=== PATIENT | male | born 1935 | race Caucasian/White ===

== ENCOUNTER 2016-07-02 09:08 | Observation (INO) | payer MEDICARE ==
[~2016-07-02] VITALS: Ht 172.7 cm; Wt 74.4 kg
[2016-07-02] VITALS (10 sets, daily range): BP systolic 118–140; BP diastolic 58–68
[~2016-07-02 09:08] MED LIST: BUPIVACAINE-EPI 0.25%-1:200000 MPF 30 ML VIAL. ONE; HYDROmorphone 2 MG/ML VIAL IV PRN; IV RINGERS,LACTATED 1000ML 1,000 ML IV SCH; LIDOCAINE 1% 1 ML SYRINGE. ID PRN; MORPHINE SULFATE 2 MG/ML DISP.SYRIN. IV PRN; ONDANSETRON PF 4 MG/2 ML VIAL. IV PRN; PROCHLORPERAZINE 10 MG/2 ML VIAL. IV PRN; fentaNYL PF VIAL 100 MCG/2 ML VIAL IV PRN
[2016-07-02] MEDS ORDERED: DOXA4TAB3 PO (09:19)
[2016-07-02] MEDS ORDERED: LISI10TA2 PO (09:19)
[2016-07-02] MEDS ORDERED: LIDOCAINE 2% PF Vial for OR 5 ML VIAL. ONE (09:24)
[2016-07-02] MEDS ORDERED: ONDANSETRON PF 4 MG/2 ML VIAL. ONE (09:24)
[2016-07-02] MEDS ORDERED: PROPOFOL 20 ML IV ONE (09:24)
[2016-07-02] MEDS ORDERED: DEXAMETHASONE SOD PHOS 20 MG/5 ML VIAL. ONE (09:24)
[2016-07-02] MEDS ORDERED: ROCURONIUM 50 MG/5 ML VIAL. ONE (09:25)
[2016-07-02] MEDS ORDERED: fentaNYL PF VIAL 100 MCG/2 ML VIAL ONE ×2 (09:26→11:15)
[2016-07-02] MEDS ORDERED: NEOSTIGMINE METHYLSULFATE 5 MG/5 ML SYRINGE. ONE (10:52)
[2016-07-02] MEDS ORDERED: GLYCOPYRROLATE 1 MG/5 ML VIAL. ONE (10:53)
[2016-07-02] MEDS ORDERED: ePHEDrine PF IN SALINE 50 MG/5 ML DISP.SYRIN IV ONE (11:09)
[2016-07-02] MEDS ORDERED: DESFLURANE 61 TO 120 MINUTES IH ONE (11:34)
[2016-07-02] MEDS ORDERED: DESFLURANE 31 TO 60 MINUTES IH ONE (11:44)
--- NOTE | 2016-07-02 11:51 | PDOC ---
BRIEF OPERATIVE NOTE Date: July 02, 2016 Pre-Op Diagnosis Recurrent LIH Post-Op Diagnosis Same Procedure Performed Robotic assisted LIH repair with mesh Surgeon Adriano Anesthesia Type: General Blood Loss 10ml Specimens Obtained None Findings As above Complications None JORGE MCDERMOTT MD July 02, 2016 11:51
[2016-07-02] MEDS: IV DEXTROSE 5%-LACT RINGERS 1,000 ML IV SCH (11:54)
[2016-07-02] MEDS ORDERED: 0.9 % SODIUM CHLORIDE 10 ML DISP.SYRIN. IV PRN (12:00)
[2016-07-02] MEDS ORDERED: MORPHINE SULFATE 2 MG/ML DISP.SYRIN. IV PRN (12:00)
[2016-07-02] MEDS ORDERED: oxyCODONE/APAP 5/325 1 TAB TABLET PO PRN ×2 (12:00)
[2016-07-02] MEDS ORDERED: ONDANSETRON PF 4 MG/2 ML VIAL. IV PRN (12:00)
[2016-07-02] MEDS: KETOROLAC 15 MG/ML VIAL. IV SCH ×2 (12:00→18:00)
[2016-07-02] MEDS: fentaNYL PF VIAL 100 MCG/2 ML VIAL IV PRN ×4 (12:11→12:42)
--- NOTE | 2016-07-02 17:15 | OP ---
DATE OF SURGERY: 07/02/2016 PREOPERATIVE DIAGNOSIS: Recurrent left inguinal hernia. POSTOPERATIVE DIAGNOSIS: Recurrent left inguinal hernia. PROCEDURE: Robotic-assisted laparoscopic left inguinal hernia repair with mesh. SURGEON: Armin Mcdermott M.D. INDICATIONS: The patient is an 80-year-old gentleman who has had bilateral inguinal hernia repairs done in the past as well as umbilical hernia repair who comes in with complaints of a bulge in his left groin. It is becoming more painful. Procedure of robotic-assisted laparoscopic left inguinal hernia repair with mesh was explained to the patient in detail. Risks and benefits were also discussed including bleeding, infection, injury to intra-abdominal contents, and possibly sustaining further open operations. Alternatives of this procedure were also discussed with the patient who seemed to understand and gave verbal and written consent to have the procedure performed. DESCRIPTION OF PROCEDURE: The patient was taken to the Operating Room and placed in the supine position. General anesthesia was initiated. Once the patient was asleep and intubated, he was placed in a low lithotomy positioning. His abdomen was prepped and draped in usual sterile fashion using ChloraPrep. An area in the left upper quadrant was injected with 0.25% Marcaine with epinephrine. Incision was made with an 11-blade scalpel, and a 5-mm operative port was placed under direct visualization into the abdomen. Pneumoperitoneum was achieved and was complete. A 5-mm camera was placed, and the abdomen was inspected. Concern was for adhesions around the previous umbilical hernia site. There were none there. There was a hernia in the left inguinal canal. At this point, area just above the umbilicus was injected with 0.25% Marcaine with epinephrine. An incision was made with an 11-blade scalpel, and an 8.5-mm da Hilario port was placed under direct visualization. Two more da Hilario ports were placed, one in the right mid abdomen and one in the left mid abdomen. At this point, the da Hilario robot was brought in between the patient's legs and docked to all ports. A 30-degree up camera was placed and a grasper placed in the right port and EndoShears in the left port. At this point, the surgeon went to the surgical console. Using a grasper and EndoShears scissors, the peritoneum over the left inguinal canal over the hernia defect was incised. A window was propagated at the peritoneum inferiorly. The incarcerated contents of the inguinal canal and the hernia sac were dissected free and reduced. At this point, a ProGrip mesh was then placed over the defect and over the floor of the peritoneum. Once this was in place, the peritoneal covering tissue was closed over the mesh with a running V-Loc suture. At this point, the da Hilario robot was undocked. All ports were removed. The skin incisions were closed with 4-0 subcuticular Monocryl. Mastisol, Steri-Strips, and Band-Aids were applied as dressings. The patient was awakened, extubated in the Operating Room, taken to Recovery in stable condition. All sponge, instrument counts were listed as correct. Estimated blood loss was 10 mL. ARMIN MCDERMOTT MD DR: IMER/vlad JOB#: [id number] / [id number] Dr. Noe Reardon
[2016-07-02] MEDS ORDERED: MAG HYDROX/ALUMINUM HYD/SIMETH 30 ML ORAL.SUSP PO PRN (22:00)
[2016-07-03] MEDS: IV DEXTROSE 5%-LACT RINGERS 1,000 ML IV SCH (01:14)
[2016-07-03 03:00] VITALS: BP 139/67
[2016-07-03] MEDS: KETOROLAC 15 MG/ML VIAL. IV SCH ×2 (05:53)
[2016-07-03 07:00] VITALS: BP 119/67
--- NOTE | 2016-07-03 08:10 | DISCH ---
DISCHARGE INSTRUCTIONS Condition on Discharge Condition on Discharge: Stable Activity After Discharge Activity Instructions for Disc: Avoid exertion Other activity instructions: No lifting >20lbs for 2 weeks Diet after Discharge Diet after Discharge: Regular Wound Incision Care Other wound/incision instructi: Judy keys starting today Contacting the after DC Call your doctor for: If your condition worsens Follow-Up Follow up with: Dr Mcdermott in 2 weeks JORGE MCDERMOTT MD July 03, 2016 08:10
--- NOTE | 2016-07-03 08:13 | PDOC3 ---
Discharge Summary* Date of Admission: July 02, 2016 Date of Discharge: July 03, 2016 Admitting Diagnosis Recurrent LIH Final Diagnosis Same CONSULTS None Procedures Robotic L/S LIH repair Brief Hospital Course Mr. Chapa is a 80 old male underwent LIH repair and is doing very well. Tolerating diet and up and walking. CONDITION AT DISCHARGE: Stable Diet: Regular Scheduled Doxazosin Mesylate (Doxazosin Mesylate), 1 TAB PO DAILY, (Reported) Lisinopril (Lisinopril), 10 MG PO DAILY, (Reported) FOLLOW UP APPOINTMENT: Dr Mcdermott in 2 weeks Time Spent Total time spent with patient [] minutes for coordination of care, counseling, and education. JORGE MCDERMOTT MD July 03, 2016 08:13
== END 2016-07-03 10:45 | disposition home or self-care (01) ==
LOC: SURG 09:08 → 4 NORTH 12:04
PROVIDERS: ADMIT Surgery; ATTEND Surgery
DX: K40.91 Unilateral inguinal hernia, without obstruction or gangrene, recurrent (principal)
CPT/HCPCS: 49651; C1781; G0378; G0379; J1100; J2405; J2704; J2710; J3010; J3490; S2900

== ENCOUNTER 2017-11-19 20:43 | Emergency (ER) | payer MEDICARE ==
[~2017-11-19] VITALS: Ht 172.7 cm; Wt 74.8 kg
[~2017-11-19 20:43] MED LIST changes: -BUPIVACAINE-EPI 0.25%-1:200000 MPF 30 ML VIAL. ONE; +DOXA4TAB3 PO; -HYDROmorphone 2 MG/ML VIAL IV PRN; -IV RINGERS,LACTATED 1000ML 1,000 ML IV SCH; -LIDOCAINE 1% 1 ML SYRINGE. ID PRN; +LISI10TA2 PO; -MORPHINE SULFATE 2 MG/ML DISP.SYRIN. IV PRN; -ONDANSETRON PF 4 MG/2 ML VIAL. IV PRN; -PROCHLORPERAZINE 10 MG/2 ML VIAL. IV PRN; -fentaNYL PF VIAL 100 MCG/2 ML VIAL IV PRN
[2017-11-19 22:34] VITALS: BP 136/60
--- NOTE | 2017-11-19 22:44 | RAD ---
Right rib series to include a PA chest radiograph 11/19/2017 CLINICAL HISTORY: Right-sided rib pain post fall. A PA digital radiograph of the chest was obtained. Two AP and an oblique digital radiographs of the right ribs were obtained. Comparison study is dated 05/08/2011. Horacio cardiac silhouette is borderline enlarged. There is left ventricular prominence. The thoracic aorta is tortuous. Atherosclerotic calcification of the thoracic aorta is seen. No acute pulmonary infiltrate is noted. No pneumothorax or pleural effusion is seen. There is diffuse osteopenia of the visualized bony structures. Degenerative changes are seen involving the thoracic spine. Degenerative changes are seen involving the right shoulder. Acute fractures of the anterolateral lateral aspect of the right ninth and 10th ribs are seen. These are not significantly displaced. IMPRESSION: Acute essentially nondisplaced fractures of the right ninth and 10th ribs. No pneumothorax is seen. Electronically signed by: Eric Flower MD (11/19/2017 10:40 PM) [facility]
[2017-11-19] MEDS ORDERED: HYDR-971 PO (23:32)
--- NOTE | 2017-11-19 23:32 | PHYS DOC ---
Past Medical History Past Medical History: High Cholesterol, Hypertension Past Surgical History: Cholecystectomy, Other Additional Past Surgical Histo: umbilical hernia repair,inguinal Alcohol Use: Rarely Drug Use: None Adult General Chief Complaint Chief Complaint: MECHANICAL FALL HPI HPI Patient is a 81 year old male resents with accidental fall after missing parts step while walking down outdoor stairs. Patient fell hitting her right posterior lower ribs off the staircase. He did hit his head off of the grafts. Denies loss of consciousness, headache, neck pain. Patient is not on anticoagulation or antiplatelet therapy. Reports right posterior chest wall pain with deep breathing. Denies anterior, chest pain,, extremity pain or any other pain complaint. He is ambulatory with a steady gait. Denies any medical symptoms preceding the fall. Denies chest pain palpitations shortness of breath , no focal extremity weakness or loss of sensation, dizziness or other strokelike symptoms. Return precautions reviewed.[] Review of Systems Review of Systems ROS as per HPI] All other systems were reviewed and found to be within normal limits, except as documented in this note. Allergies Allergies Allergies Coded Allergies Type Severity Reaction Last Updated Verified No Known Drug Allergies 07/02/16 No Physical Exam Physical Exam Constitutional: Well developed, well nourished, no acute distress, non-toxic appearance. [] HENT: Normocephalic, atraumatic, bilateral external ears normal, oropharynx moist, no oral exudates, nose normal. [] Eyes: PERRLA, EOMI, conjunctiva normal, no discharge. [] Neck: Normal range of motion, no tenderness, supple, no stridor. [] Cardiovascular:Heart rate regular rhythm, no murmur [] Lungs & Thorax: Bilateral breath sounds clear to auscultation [] Abdomen: Bowel sounds normal, soft, no tenderness, no masses, no pulsatile masses. [] Skin: Warm, dry, no erythema, no rash. [] Back: Right lower posterior thoracic chest wall pain/ttp, no midline pain tenderness. No CVA tenderness. No bruising, bony crepitus.. [] Extremities: No tenderness, no cyanosis, no clubbing, ROM intact, no edema. [] Neurologic: Alert and oriented X 3, normal motor function, normal sensory function, no focal deficits noted. [] Psychologic: Affect normal, judgement normal, mood normal. [] Current Patient Data Vital Signs Vital Signs Date Time Temp Pulse Resp B/P (MAP) Pulse Ox O2 Delivery O2 Flow Rate FiO2 11/19/17 22:34 57 16 97 11/19/17 21:15 98.0 143/67 (92) Room Air 98.0 EKG EKG [] Radiology/Procedures Radiology/Procedures [Right rib series/chest x-ray: Nondisplaced posterior ninth and 10th rib fractures. ] Course & Med Decision Making Course & Med Decision Making Pertinent Labs and Imaging studies reviewed. (See chart for details) [Nondisplaced posterior right rib fractures. No shortness of breath. Patient offered CT head but declined. Recommend supportive care. Typical closed head injury and instructions and return precautions reviewed.] Dragon Disclaimer Dragon Disclaimer This electronic medical record was generated, in whole or in part, using a voice recognition dictation system. Departure Departure Impression: Primary Impression: Head injury Additional Impression: Closed rib fracture Disposition: HOME, SELF-CARE Condition: STABLE Referrals: ZOHAIB KU MD (PCP) Patient Instructions: Head Injury, Adult, [id number], Rib Fracture, Easy-to- Read Additional Instructions: Please home and rest. Take ibuprofen for pain and hydrocodone as needed for additional relief. Practices taking deep breaths ICU at increased risk of pneumonia. Follow-up with your PCP in the next 2-3 days for reevaluation. Return to the ED if you develop new or concerning symptoms. Specifically, if you develop increasing headache, confusion, vomiting, or any other concerning symptoms return to the emergency department. Scripts Hydrocodone/Apap 5-325 (NORCO 5-325 TABLET) 1 Each Tablet 1 TAB PO TID, #10 TAB Prov: HENRY AMOR DO 11/19/17 Problem Qualifiers HENRY AMOR DO Nov 19, 2017 23:33
== END 2017-11-19 23:39 | disposition home or self-care (01) ==
LOC: ER 20:43
DX: S22.31XA Fracture of one rib, right side, initial encounter for closed fracture (principal); S09.90XA Unspecified injury of head, initial encounter; E78.00 Pure hypercholesterolemia, unspecified; I10 Essential (primary) hypertension; W18.09XA Striking against other object with subsequent fall, initial encounter; Y93.89 Activity, other specified; Y92.89 Other specified places as the place of occurrence of the external cause; Y99.8 Other external cause status
CPT/HCPCS: 71101; 99284

== ENCOUNTER 2018-10-06 16:36 | Observation (INO) | payer MEDICARE ==
[~2018-10-06] VITALS: Ht 172.7 cm; Wt 72.3 kg
[~2018-10-06 16:36] MED LIST changes: +HYDR-3164 PO
[2018-10-06] MEDS ORDERED: IV NORMAL SALINE 1000ML BAG 1,000 ML IV ONE (17:15)
[2018-10-06 17:34] LABS: BASO % 1 % (0-3); EOS # 0.1 x10^3/uL (0.0-0.7); EOS % 2 % (0-3); HEMATOCRIT 33.1 % (39.0-53.0); HEMOGLOBIN 11.7 g/dL (13.0-17.5); LYMPH # 0.8 x10^3/uL (1.0-4.8); LYMPH % 21 % (24-48); MEAN CORPUSCULAR HEMOGLOBIN 35 pg (25-35); MEAN CORPUSCULAR HGB CONC 35 g/dL (31-37); MEAN CORPUSCULAR VOLUME 97 fL (79-100); MONO # 0.3 x10^3/uL (0.0-1.1); MONO % 8 % (0-9); NEUT # 2.7 x10^3/uL (1.8-7.7); NEUT % 68 % (31-73); PLATELET COUNT 113 x10^3/uL (140-400); RED BLOOD COUNT 3.39 x10^6/uL (4.30-5.70); WHITE BLOOD COUNT 3.9 x10^3/uL (4.0-11.0)
[2018-10-06 17:39] LABS: BILIRUBIN,URINE NEGATIVE (NEG); CLARITY,URINE CLOUDY; COLOR,URINE YELLOW; NITRITE,URINE NEGATIVE (NEG); PROTEIN,URINE NEGATIVE (NEG-TRACE); UROBILINOGEN,URINE 0.2 mg/dL (0.2 mg/dL)
--- NOTE | 2018-10-06 17:39 | RAD ---
AP portable chest radiograph 10/06/2018 Clinical History: Lightheadedness. An AP erect portable digital radiograph of the chest was obtained. Comparison study is dated 11/19/2017. The cardiac silhouette is mildly enlarged. The thoracic aorta is tortuous. Atherosclerotic calcification of the thoracic aorta is seen. Emphysematous changes are seen involving both lungs. No acute pulmonary infiltrate is seen. No pleural effusion or pneumothorax is noted. There is diffuse osteopenia the visualized bony structures. Degenerative changes are seen involving the thoracic spine and both shoulders. Impression: No acute abnormality is seen. Electronically signed by: Eric Flower MD (10/06/2018 5:36 PM) [facility]
[2018-10-06 17:43] LABS: PROTHROMBIN TIME PATIENT 13.8 SEC (11.7-14.0)
[2018-10-06 17:45] LABS: BACTERIA,URINE 0 /HPF (0-FEW); RBC,URINE >40 /HPF (0-2)
[2018-10-06 17:51] LABS: CALCIUM 8.8 mg/dL (8.5-10.1); GFR 71.2; POTASSIUM 3.7 mmol/L (3.5-5.1)
[2018-10-06 17:56] LABS: ALBUMIN 3.5 g/dL (3.4-5.0); ALBUMIN/GLOBULIN RATIO 1.2 (1.0-1.7); MAGNESIUM 1.8 mg/dL (1.8-2.4); TOTAL BILIRUBIN 0.4 mg/dL (0.2-1.0); TOTAL PROTEIN 6.5 g/dL (6.4-8.2)
--- NOTE | 2018-10-06 17:59 | RAD ---
Exam: CT head INDICATION: Lightheadedness TECHNIQUE: Sequential axial images through the head were obtained without the administration of IV contrast. Comparisons: None FINDINGS: No focal parenchymal lesion or hemorrhage is identified. There is no midline shift or sulcal effacement. Patchy hypodensities noted within the periventricular white matter which is age indeterminant. The ventricular system is within normal limits without compression hydrocephalus. The basal cisterns are well maintained. The visualized portions of the paranasal sinuses and mastoid air cells are well-pneumatized. No acute fractures. IMPRESSION: Patchy hypodensity within the periventricular white matter which is age indeterminate and may representing chronic ischemic change. Exposure: One or more of the following in the visualized dose reduction techniques were utilized for this examination: 1. Automated exposure control 2. Adjustment of the MA and/or KV according to patient size Use of iterative of reconstructive technique Electronically signed by: Saima Barros MD (10/06/2018 5:57 PM) [facility]
--- NOTE | 2018-10-06 18:17 | EKG ---
[facility] [address] [place] [address] Test Date: 2018-10-06 Test Time: 16:54:56 Pat Name: SALTY XIE Department: Room: Gender: M Wellness Program Manager: : 1935 Requested By: LAUREN BEASLEY Order Number: [id number] Reading MD: Johny Silva MD Measurements Intervals [place] Rate: 59 P: 36 GA: 216 QRS: -19 QRSD: 90 T: 39 QT: 422 QTc: 422 Interpretive Statements SINUS RHYTHM LEFTWARD AXIS QRS(T) CONTOUR ABNORMALITY CONSISTENT WITH ANTEROSEPTAL INFARCT PROBABLY OLD CONSISTENT WITH INFERIOR INFARCT PROBABLY OLD ABNORMAL ECG Electronically Signed On 10-07-2018 16:04:56 CDT by Johny Silva MD
--- NOTE | 2018-10-06 18:36 | PHYS DOC ---
Past Medical History Past Medical History: High Cholesterol, Hypertension, Other Additional Past Medical Histor: ENLARGED PROSTATE Past Surgical History: Cholecystectomy, Other Additional Past Surgical Histo: umbilical hernia repair,inguinal Smoking: Quit Greater Than 1 Year Alcohol Use: Rarely Drug Use: None Adult General Chief Complaint Chief Complaint: DIZZY/LIGHT HEADED HPI HPI 82 y/o male presents with history of dizziness which has been on going for last few month which has been worse over the last 1.5 weeks. Denies fever/chills. Reports history of fall approximately 2-3 month ago injuring ribs. Patient concerned that he might fall ago. Patient recently seen by Dr. Ku (PCP) and had labs drawn. Patient reports was told that he was "anemic". Reports worse with movement of head and with position change. Denies N/V/D. Denies melita st pain or abdominal pain. Review of Systems Review of Systems Constitutional: Denies fever or chills Eyes: Denies redness or eye pain HENT: Denies nasal congestion or sore throat Respiratory: Denies cough or shortness of breath Cardiovascular: Denies chest pain or palpitations GI: Denies abdominal pain, nausea, or vomiting : Denies dysuria or hematuria Musculoskeletal: Denies back pain or joint pain Integument: Denies rash or skin lesions Neurologic: Denies headache, focal weakness or sensory changes; reports dizziness and lightheadedness Complete systems were reviewed and found to be within normal limits, except as documented in this note. Current Medications Current Medications Current Medications Medications (Trade) Dose Ordered Sig/Kirill Start Time Stop Time Status Last Admin Dose Admin Sodium Chloride 1,000 ml @ 1,000 mls/hr 1X ONCE 10/06/18 17:15 10/06/18 18:14 DC 10/06/18 17:49 1,000 MLS/HR Allergies Allergies Allergies Coded Allergies Type Severity Reaction Last Updated Verified No Known Drug Allergies 07/02/16 No Physical Exam Physical Exam Constitutional: Well developed, well nourished, no acute distress, non-toxic appearance HENT: Normocephalic, atraumatic, oropharynx moist Eyes: PERRL, EOMI, conjunctiva normal, no discharge, no nystagmus noted Neck: Normal range of motion, no tenderness, supple Cardiovascular: Heart rate normal, regular rhythm Lungs & Thorax: Bilateral breath sounds clear to auscultation, no wheezing Abdomen: Soft, no tenderness Skin: Warm, dry, no erythema, no rash Back: No tenderness, no CVA tenderness Extremities: No tenderness, ROM intact, no edema Neurologic: Alert and oriented X 3, normal motor function, normal sensory function, no focal deficits noted Psychologic: Affect normal, judgement normal Current Patient Data Vital Signs Vital Signs Date Time Temp Pulse Resp B/P (MAP) Pulse Ox O2 Delivery O2 Flow Rate FiO2 10/06/18 18:00 52 16 98 10/06/18 16:56 98.1 158/71 (100) Room Air 98.1 Lab Values Laboratory Tests Test 10/06/18 16:53 10/06/18 17:34 10/06/18 17:53 White Blood Count 3.9 x10^3/uL (4.0-11.0) L Red Blood Count 3.39 x10^6/uL (4.30-5.70) L Hemoglobin 11.7 g/dL (13.0-17.5) L Hematocrit 33.1 % (39.0-53.0) L Mean Corpuscular Volume 97 fL (79-100) Mean Corpuscular Hemoglobin 35 pg (25-35) Mean Corpuscular Hemoglobin Concent 35 g/dL (31-37) Red Cell Distribution Width 13.0 % (11.5-14.5) Platelet Count 113 x10^3/uL (140-400) L Neutrophils (%) (Auto) 68 % (31-73) Lymphocytes (%) (Auto) 21 % (24-48) L Monocytes (%) (Auto) 8 % (0-9) Eosinophils (%) (Auto) 2 % (0-3) Basophils (%) (Auto) 1 % (0-3) Neutrophils # (Auto) 2.7 x10^3/uL (1.8-7.7) Lymphocytes # (Auto) 0.8 x10^3/uL (1.0-4.8) L Monocytes # (Auto) 0.3 x10^3/uL (0.0-1.1) Eosinophils # (Auto) 0.1 x10^3/uL (0.0-0.7) Basophils # (Auto) 0.0 x10^3/uL (0.0-0.2) Prothrombin Time 13.8 SEC (11.7-14.0) Prothrombin Time INR 1.1 (0.8-1.1) Activated Partial Thromboplast Time 28 SEC (24-38) Sodium Level 145 mmol/L (136-145) Potassium Level 3.7 mmol/L (3.5-5.1) Chloride Level 109 mmol/L (98-107) H Carbon Dioxide Level 26 mmol/L (21-32) Anion Gap 10 (6-14) Blood Urea Nitrogen 24 mg/dL (8-26) Creatinine 1.0 mg/dL (0.7-1.3) Estimated GFR (Cockcroft-Gault) 71.2 BUN/Creatinine Ratio 24 (6-20) H Glucose Level 113 mg/dL (70-99) H Calcium Level 8.8 mg/dL (8.5-10.1) Magnesium Level 1.8 mg/dL (1.8-2.4) Total Bilirubin 0.4 mg/dL (0.2-1.0) Aspartate Amino Transferase (AST) 20 U/L (15-37) Alanine Aminotransferase (ALT) 14 U/L (16-63) L Alkaline Phosphatase 55 U/L (46-116) Troponin I Quantitative < 0.017 ng/mL (0.000-0.055) Total Protein 6.5 g/dL (6.4-8.2) Albumin 3.5 g/dL (3.4-5.0) Albumin/Globulin Ratio 1.2 (1.0-1.7) Urine Collection Type Unknown Urine Color Yellow Urine Clarity Cloudy Urine pH 5.0 Urine Specific [place] 1.020 Urine Protein Negative mg/dL (NEG-TRACE) Urine Glucose (UA) Negative mg/dL (NEG) Urine Ketones (Stick) Negative mg/dL (NEG) Urine Blood Large (NEG) Urine Nitrite Negative (NEG) Urine Bilirubin Negative (NEG) Urine Urobilinogen Dipstick 0.2 mg/dL (0.2 mg/dL) Urine Leukocyte Esterase Small (NEG) Urine RBC >40 /HPF (0-2) Urine WBC 1-4 /HPF (0-4) Urine Bacteria 0 /HPF (0-FEW) Urine Mucus Mod /LPF Lactic Acid Level 1.0 mmol/L (0.4-2.0) Laboratory Tests 10/06/18 16:53 Laboratory Tests 10/06/18 16:53 EKG EKG @1654 Sinus bradyardia at 59bpm, NO ST elevation, QRS 90ms, QT/QTc 422/422ms Radiology/Procedures Radiology/Procedures PROCEDURE: CT HEAD WO CONTRAST Exam: CT head INDICATION: Lightheadedness TECHNIQUE: Sequential axial images through the head were obtained without the administration of IV contrast. Comparisons: None FINDINGS: No focal parenchymal lesion or hemorrhage is identified. There is no midline shift or sulcal effacement. Patchy hypodensities noted within the periventricular white matter which is age indeterminant. The ventricular system is within normal limits without compression hydrocephalus. The basal cisterns are well maintained. The visualized portions of the paranasal sinuses and mastoid air cells are well-pneumatized. No acute fractures. IMPRESSION: Patchy hypodensity within the periventricular white matter which is age indeterminate and may representing chronic ischemic change. Exposure: One or more of the following in the visualized dose reduction techniques were utilized for this examination: 1. Automated exposure control 2. Adjustment of the MA and/or KV according to patient size Use of iterative of reconstructive technique Electronically signed by: Saima Barros MD (10/06/2018 5:57 PM) [facility] PROCEDURE: PORTABLE CHEST 1V AP portable chest radiograph 10/06/2018 Clinical History: Lightheadedness. An AP erect portable digital radiograph of the chest was obtained. Comparison study is dated 11/19/2017. The cardiac silhouette is mildly enlarged. The thoracic aorta is tortuous. Atherosclerotic calcification of the thoracic aorta is seen. Emphysematous changes are seen involving both lungs. No acute pulmonary infiltrate is seen. No pleural effusion or pneumothorax is noted. There is diffuse osteopenia the visualized bony structures. Degenerative changes are seen involving the thoracic spine and both shoulders. Impression: No acute abnormality is seen. Electronically signed by: Eric Flower MD (10/06/2018 5:36 PM) [facility] Course & Med Decision Making Course & Med Decision Making Pertinent Labs and Imaging studies reviewed. (See chart for details) Patient presents with history of present illness and physical exam consistent for near syncope. Patient reports worse today. Reports has had issues with dizziness/let lightheadedness for the last several months. Denies chest pain or headache. Denies fever or chills. Vital signs stable. Labs obtained and posted to chart. EKG stable. CT head and chest x-ray that acute process. Orthostatic vital signs stable. NIHSS 0. UA without signs of infection but noted hematuria. Denies suprapubic pain and flank pain. Discussed case with Dr. Ku (PCP) who requests observation admission. Discussed findings and plan with patient and family, who acknowledge understanding and agreement. Dragon Disclaimer Dragon Disclaimer This electronic medical record was generated, in whole or in part, using a voice recognition dictation system. Departure Departure Impression: Primary Impression: Near syncope Additional Impression: Hematuria Disposition: ADMITTED INPATIENT Admitting Physician: Zohaib Ku Condition: STABLE Referrals: ZOHAIB KU MD (PCP) NIHSS Stroke Scale NIH Stroke Scale: NIH Stroke Scale Response (Comments) Value Level of Consciousness: 0 Alert/Responsive 0 LOC Questions: 0 Answers both correctly 0 LOC Commands: 0 Performs both tasks 0 Best Gaze: 0 Normal 0 Visual: 0 No visual loss 0 Facial Palsy: 0 Normal, symmetrical 0 Motor - Left Arm 0 No drift 0 Motor - Right Arm 0 No drift 0 Motor - Left Leg 0 No drift 0 Motor: Right Leg 0 No drift 0 Limb Ataxia: 0 Absent 0 Sensory: 0 No loss 0 Best Language: 0 Normal 0 Dysathria: 0 Normal 0 Extinction and Inattention: 0 Normal 0 Total 0 Problem Qualifiers Additional Impression: Hematuria Hematuria type: unspecified type Qualified Codes: R31.9 - Hematuria, unspecified LAUREN BEASLEY DO Oct 06, 2018 18:36
[2018-10-06] MEDS ORDERED: ONDANSETRON PF 4 MG/2 ML VIAL. IV PRN (18:45)
[2018-10-06 19:50] VITALS: BP 152/66
[2018-10-06] MEDS ORDERED: IBUP-1027 PO (20:41)
--- NOTE | 2018-10-06 21:05 | NUR ---
The patient, SALTY XIE, 82 y/o, M admitted by ZOHAIB KU MD, was given written information regarding hospital policies, unit procedures and contact persons. Valuables were checked and left in room with patient. Vitals stable, resting in bed, bed alarm on. Will continue to monitor
[2018-10-06 23:39] VITALS: BP 132/81
[2018-10-07 03:38] VITALS: BP 135/63
[2018-10-07 07:30] VITALS: BP 149/67
[2018-10-07 07:35] VITALS: BP 143/69
[2018-10-07 07:40] VITALS: BP 134/62
--- NOTE | 2018-10-07 08:55 | PDOC ---
Provider Note Provider Note [id number] ZOHAIB KU MD Oct 07, 2018 08:55
--- NOTE | 2018-10-07 09:17 | HP ---
ADMIT DATE: CHIEF COMPLAINT: Fatigue and weakness. HISTORY OF PRESENT ILLNESS: This is an 82-year-old white male, normally healthy and pretty active physically in the last 2-3 weeks has had increasing fatigue, nonspecific type. Outpatient laboratory studies including chemistry profile, CBC and TSH were normal. An echocardiogram has been scheduled, but not done yet. He came in with increasing fatigue and nonspecific symptoms and was admitted. Monitor does not show any arrhythmias to this point and chest x-ray is clear. PAST MEDICAL HISTORY: He takes Cardura as his only medication. He used to take blood pressure medicine, but he has been off those. PAST SURGICAL HISTORY: He denies any other significant surgeries in the past. ALLERGIES: No allergies. SOCIAL HISTORY: He is , a light drinker, nonsmoker, very physically active, walking 3 miles every day. FAMILY HISTORY: Unremarkable. REVIEW OF SYSTEMS: No other known problems. OBJECTIVE: ENT: All within normal limits. NECK: No masses, nodes or bruits. LUNGS: Clear. CARDIOVASCULAR: Regular rate. No murmur or tachycardia. ABDOMEN: Soft, benign and nontender. BACK: No flank tenderness or masses. EXTREMITIES: Excellent pedal and radial pulses. NEUROLOGIC: Physiologic and nonfocal. ASSESSMENT: Nonspecific fatigue. Laboratory study shows microhematuria without symptoms and he has a history of BPH. He also has some mild pancytopenia, which from previous records is not new, was slightly worse now and slightly elevated MCV. PLAN: B12 level. Renal sonogram. Neurologic consultation. Echocardiogram. ZOHAIB KU MD DR: ZANDRA/vlad JOB#: [id number] / [id number]
--- NOTE | 2018-10-07 10:12 | PDOC2 ---
UROLOGY CONSULT Date of Consult Date of Consult DATE: 10/07/18 TIME: 10:06 Reason for Consult Reason for Consult: Hematuria Identification/Chief Complaint Chief Complaint Microscopic Hematuria Source Source: Caregiver, Chart review, Patient History of Present Illness Reason for Visit: This pleasant 82 year old male was admitted to [facility] with syncope and weakness. Microscpic hematuria was found on urine testing and so urology was consulted. Patient denies ever seeing hematuria in his urine, reports it is normally yellow, clear. He does admit a history of BPH for which he takes Flomax; his PCP gave him this medication, as he has never seen a Urologist for any reason to his knowledge This medication seems to take care of his LUTS because he denies frequency or bothersome nocturia. He generally only gets up once at night. He denies dysuria or flank pain. 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 Past Medical History Renal/: Benign prostatic enlarg. Current Problem List Problems: (1) Hematuria Current Medications Current Medications Current Medications Doxazosin Mesylate (Cardura) 4 mg QHS PO ; Start 10/07/18 at 21:00 Ondansetron HCl (Zofran) 4 mg PRN Q8HRS PRN IV NAUSEA/VOMITING; Start 10/06/18 at 18:45; Stop 10/07/18 at 18:44 Sodium Chloride 1,000 ml @ 1,000 mls/hr 1X ONCE IV Last administered on 10/06/18at 17:49; Start 10/06/18 at 17:15; Stop 10/06/18 at 18:14; Status DC Allergies Allergies: Coded Allergies: No Known Drug Allergies (Unverified , 07/02/16) ROS Review Of Systems: CONSTITUTIONAL: No fever or chills EYES: No recent changes SKIN: No rash or itching CARDIOVASCULAR: No chest pain, syncope, palpitations, or edema RESPIRATORY: No SOB or cough GASTROINTESTINAL: No nausea, vomiting or abdominal pain NEUROLOGICAL: No headaches or weakness ENDOCRINE: No cold or heat intolerance GENITOURINARY: No urgency or frequency of urination MUSCULOSKELETAL: No back pain or joint pain LYMPHATICS: No enlarged lymph nodes PSYCHIATRIC: No anxiety or depression Physical Exam Physical Exam: General: Pleasant, no acute distress, well groomed Eyes: conjunctiva anicteric, eyes full range of motion ENT: moist oral mucosa, normal dentition Neck: Trachea midline, no masses Respiratory: unlabored breathing, not using accessory muscles Back: No CVA pain on testing. Abdomen: nontender, nondistended, no hepatosplenomegaly, no masses Skin: no rashes or skin lesions on visualized skin Psych: normal mood, affect. Alert and oriented x 3. Vitals VITALS Vital Signs Date Time Temp Pulse Resp B/P (MAP) Pulse Ox O2 Delivery O2 Flow Rate FiO2 10/07/18 07:40 65 134/62 (86) 10/07/18 07:30 98.1 18 95 Room Air 98.1 Labs Labs Laboratory Tests Test 10/06/18 16:53 10/06/18 17:34 10/06/18 17:53 10/06/18 22:40 White Blood Count 3.9 x10^3/uL (4.0-11.0) Red Blood Count 3.39 x10^6/uL (4.30-5.70) Hemoglobin 11.7 g/dL (13.0-17.5) Hematocrit 33.1 % (39.0-53.0) Mean Corpuscular Volume 97 fL (79-100) Mean Corpuscular Hemoglobin 35 pg (25-35) Mean Corpuscular Hemoglobin Concent 35 g/dL (31-37) Red Cell Distribution Width 13.0 % (11.5-14.5) Platelet Count 113 x10^3/uL (140-400) Neutrophils (%) (Auto) 68 % (31-73) Lymphocytes (%) (Auto) 21 % (24-48) Monocytes (%) (Auto) 8 % (0-9) Eosinophils (%) (Auto) 2 % (0-3) Basophils (%) (Auto) 1 % (0-3) Neutrophils # (Auto) 2.7 x10^3/uL (1.8-7.7) Lymphocytes # (Auto) 0.8 x10^3/uL (1.0-4.8) Monocytes # (Auto) 0.3 x10^3/uL (0.0-1.1) Eosinophils # (Auto) 0.1 x10^3/uL (0.0-0.7) Basophils # (Auto) 0.0 x10^3/uL (0.0-0.2) Prothrombin Time 13.8 SEC (11.7-14.0) Prothromb Time International Ratio 1.1 (0.8-1.1) Activated Partial Thromboplast Time 28 SEC (24-38) Sodium Level 145 mmol/L (136-145) Potassium Level 3.7 mmol/L (3.5-5.1) Chloride Level 109 mmol/L (98-107) Carbon Dioxide Level 26 mmol/L (21-32) Anion Gap 10 (6-14) Blood Urea Nitrogen 24 mg/dL (8-26) Creatinine 1.0 mg/dL (0.7-1.3) Estimated GFR (Cockcroft-Gault) 71.2 BUN/Creatinine Ratio 24 (6-20) Glucose Level 113 mg/dL (70-99) Calcium Level 8.8 mg/dL (8.5-10.1) Magnesium Level 1.8 mg/dL (1.8-2.4) Total Bilirubin 0.4 mg/dL (0.2-1.0) Aspartate Amino Transf (AST/SGOT) 20 U/L (15-37) Alanine Aminotransferase (ALT/SGPT) 14 U/L (16-63) Alkaline Phosphatase 55 U/L (46-116) Troponin I Quantitative < 0.017 ng/mL (0.000-0.055) < 0.017 ng/mL (0.000-0.055) Total Protein 6.5 g/dL (6.4-8.2) Albumin 3.5 g/dL (3.4-5.0) Albumin/Globulin Ratio 1.2 (1.0-1.7) Urine Collection Type Unknown Urine Color Yellow Urine Clarity Cloudy Urine pH 5.0 Urine Specific [place]ar[place] 1.020 Urine Protein Negative mg/dL (NEG-TRACE) Urine Glucose (UA) Negative mg/dL (NEG) Urine Ketones (Stick) Negative mg/dL (NEG) Urine Blood Large (NEG) Urine Nitrite Negative (NEG) Urine Bilirubin Negative (NEG) Urine Urobilinogen Dipstick 0.2 mg/dL (0.2 mg/dL) Urine Leukocyte Esterase Small (NEG) Urine RBC >40 /HPF (0-2) Urine WBC 1-4 /HPF (0-4) Urine Bacteria 0 /HPF (0-FEW) Urine Mucus Mod /LPF Lactic Acid Level 1.0 mmol/L (0.4-2.0) Test 10/07/18 02:00 Troponin I Quantitative < 0.017 ng/mL (0.000-0.055) Laboratory Tests Test 10/06/18 16:53 10/06/18 17:34 10/06/18 17:53 10/06/18 22:40 White Blood Count 3.9 x10^3/uL (4.0-11.0) Red Blood Count 3.39 x10^6/uL (4.30-5.70) Hemoglobin 11.7 g/dL (13.0-17.5) Hematocrit 33.1 % (39.0-53.0) Mean Corpuscular Volume 97 fL (79-100) Mean Corpuscular Hemoglobin 35 pg (25-35) Mean Corpuscular Hemoglobin Concent 35 g/dL (31-37) Red Cell Distribution Width 13.0 % (11.5-14.5) Platelet Count 113 x10^3/uL (140-400) Neutrophils (%) (Auto) 68 % (31-73) Lymphocytes (%) (Auto) 21 % (24-48) Monocytes (%) (Auto) 8 % (0-9) Eosinophils (%) (Auto) 2 % (0-3) Basophils (%) (Auto) 1 % (0-3) Neutrophils # (Auto) 2.7 x10^3/uL (1.8-7.7) Lymphocytes # (Auto) 0.8 x10^3/uL (1.0-4.8) Monocytes # (Auto) 0.3 x10^3/uL (0.0-1.1) Eosinophils # (Auto) 0.1 x10^3/uL (0.0-0.7) Basophils # (Auto) 0.0 x10^3/uL (0.0-0.2) Prothrombin Time 13.8 SEC (11.7-14.0) Prothromb Time International Ratio 1.1 (0.8-1.1) Activated Partial Thromboplast Time 28 SEC (24-38) Sodium Level 145 mmol/L (136-145) Potassium Level 3.7 mmol/L (3.5-5.1) Chloride Level 109 mmol/L (98-107) Carbon Dioxide Level 26 mmol/L (21-32) Anion Gap 10 (6-14) Blood Urea Nitrogen 24 mg/dL (8-26) Creatinine 1.0 mg/dL (0.7-1.3) Estimated GFR (Cockcroft-Gault) 71.2 BUN/Creatinine Ratio 24 (6-20) Glucose Level 113 mg/dL (70-99) Calcium Level 8.8 mg/dL (8.5-10.1) Magnesium Level 1.8 mg/dL (1.8-2.4) Total Bilirubin 0.4 mg/dL (0.2-1.0) Aspartate Amino Transf (AST/SGOT) 20 U/L (15-37) Alanine Aminotransferase (ALT/SGPT) 14 U/L (16-63) Alkaline Phosphatase 55 U/L (46-116) Troponin I Quantitative < 0.017 ng/mL (0.000-0.055) < 0.017 ng/mL (0.000-0.055) Total Protein 6.5 g/dL (6.4-8.2) Albumin 3.5 g/dL (3.4-5.0) Albumin/Globulin Ratio 1.2 (1.0-1.7) Urine Collection Type Unknown Urine Color Yellow Urine Clarity Cloudy Urine pH 5.0 Urine Specific [place]ar[place] 1.020 Urine Protein Negative mg/dL (NEG-TRACE) Urine Glucose (UA) Negative mg/dL (NEG) Urine Ketones (Stick) Negative mg/dL (NEG) Urine Blood Large (NEG) Urine Nitrite Negative (NEG) Urine Bilirubin Negative (NEG) Urine Urobilinogen Dipstick 0.2 mg/dL (0.2 mg/dL) Urine Leukocyte Esterase Small (NEG) Urine RBC >40 /HPF (0-2) Urine WBC 1-4 /HPF (0-4) Urine Bacteria 0 /HPF (0-FEW) Urine Mucus Mod /LPF Lactic Acid Level 1.0 mmol/L (0.4-2.0) Test 10/07/18 02:00 Troponin I Quantitative < 0.017 ng/mL (0.000-0.055) Assessment/Plan Assessment/Plan We will get a CTU for hematuria Can coordinate for cystoscopy appointment, depending upon discharge. Discussed rational for test with patient and attending RN, all questions answered Dr. Dumont to round on patient over the weekend. BRIANA LOPEZ APRN Oct 07, 2018 10:12
[2018-10-07 11:00] VITALS: BP 122/55
--- NOTE | 2018-10-07 11:48 | RAD ---
Indication: Hematuria TECHNIQUE: Grayscale and color Doppler images of the bilateral kidneys and bladder COMPARISON: None FINDINGS: The right kidney measures 10 point for by 6.2 x 4.8 cm with multiple anechoic lesions the largest measuring 6.1 cm in size with single septation. No hydronephrosis. IVC and proximal aorta are within normal limits. Mid and distal aortic segments are not visualized due to overlying bowel gas. Urinary bladder within normal limits. Prostate is enlarged measuring 5.9 x 6.4 x 5.8 cm. The left kidney measures 11.0 x 6.2 x 5.6 cm. couple of anechoic lesions are seen in the left kidney, the largest measuring 4.0 cm compatible with simple cyst. IMPRESSION: Bilateral simple appearing renal cysts. No hydronephrosis. Prostatomegaly. Clinically correlate with physical exam and PSA. Electronically signed by: Jeremias Cervantes DO (10/07/2018 11:45 AM) [facility]
--- NOTE | 2018-10-07 11:51 | CARD ---
MR#: [id number] Date of Study: 10/07/2018 Ordering Physician: ZOHAIB KU, Referring Physician: ZOHAIB KU Tech: Peyton Ernandez RDCS APPROVED REPORT EXAM: Two-dimensional and M-mode echocardiogram with Doppler and color Doppler. Other Information Quality : Good INDICATION Fatigue 2D DIMENSIONS RVDd3.8 (2.9-3.5cm)Left Atrium(2D)4.5 (1.6-4.0cm) IVSd1.0 (0.7-1.1cm)Aortic Root(2D)2.9 (2.0-3.7cm) LVDd5.7 (3.9-5.9cm)LVOT Diameter2.1 (1.8-2.4cm) PWd0.9 (0.7-1.1cm)LVDs3.8 (2.5-4.0cm) FS (%) 33.4 %SV100.0 ml LVEF(%)60.0 (>50%) Aortic Valve AoV Peak Shukri.125.7cm/sAoV VTI26.5cm AO Peak GR.6.3mmHgLVOT Peak Shukri.86.8cm/s AO Mean GR.4mmHgAVA (VMAX)2.48cm2 MARLON (VTI)2.60cm2 Mitral Valve MV E Pclbgxnr42.9cm/sMV DECEL CPDR360ku MV A Hgjlcxly28.6cm/sE/A Ratio0.6 Tricuspid Valve TR P. Fejxvtur892xn/sRAP QDNTTHVO3raRe TR Peak Gr.05cqMnWMPM51roGf Pulmonary Vein S1 Knttddvj82.8cm/sD2 Qixjrzls07.9cm/s LEFT VENTRICLE The left ventricle is normal size. There is normal left ventricular wall thickness. The left ventricu lar systolic function is normal and the ejection fraction is within normal range. The Ejection Fracti on is 55-60%. There is normal LV segmental wall motion. Transmitral Doppler flow pattern is Grade I-a bnormal relaxation pattern. RIGHT VENTRICLE The right ventricle is mildly dilated. The right ventricular systolic function is normal. ATRIA The left atrium is mildly dilated. The right atrium size is normal. The atrial septum is aneurysmal. Color Doppler suggests left to right interatrial shunt. AORTIC VALVE The aortic valve is calcified but opens well. Doppler and Color Flow revealed no significant aortic r egurgitation. There is no significant aortic valvular stenosis. MITRAL VALVE The mitral valve is calcified but opens well. There is no evidence of mitral valve prolapse. There is no mitral valve stenosis. Doppler and Color-flow revealed trace to mild mitral regurgitation. TRICUSPID VALVE The tricuspid valve is normal in structure and function. Doppler and Color Flow revealed trace tricus pid regurgitation. The PA pressure was estimated at 29 mmHg. There is no tricuspid valve stenosis. PULMONIC VALVE The pulmonary valve is normal in structure and function. Doppler and Color Flow revealed mild pulmoni c valvular regurgitation. There is no pulmonic valvular stenosis. GREAT VESSELS The aortic root is normal in size. The ascending aorta is normal in size. The IVC is normal in size a nd collapses >50% with inspiration. PERICARDIAL EFFUSION There is no evidence of significant pericardial effusion. Critical Notification Critical Value: No <Conclusion> The left ventricular systolic function is normal and the ejection fraction is within normal range. Th e Ejection Fraction is 55-60%. There is normal LV segmental wall motion. The atrial septum is aneurysmal. Color Doppler suggests left to right interatrial shunt. Signed by : Johny Silva, Electronically Approved : 10/07/2018 11:51:05
[2018-10-07] MEDS ORDERED: CONTRAST GIVEN. MC PRN (12:00)
[2018-10-07] MEDS ORDERED: IOHEXOL 300 MG/ML 100ML VIAL. IV ONE (12:00)
--- NOTE | 2018-10-07 13:36 | NUR ---
SS following for discharge planning. SS reviewed pt chart. Pt is from home and is currently on room air. No discharge needs noted at this time. SS will continue to follow for discharge planning.
[2018-10-07 15:00] VITALS: BP 119/55
--- NOTE | 2018-10-07 15:21 | RAD ---
PQRS Compliance statement: One or more of the following individualized dose reduction techniques were utilized for this examination: 1. Automated exposure control. 2. Adjustment of the mA and/or kV according to patient size. 3. Use of iterative reconstruction technique. Indication:Hematuria. TECHNIQUE: CT abdomen and pelvis without and with IV contrast with multiplanar reformats. COMPARISON: None FINDINGS: Heart is normal in size. No pericardial or pleural effusion. 4 mm nodule in the left lower lobe (series 6 image 1). Liver, spleen, pancreas and adrenals within normal limits. Status post cholecystectomy. Multiple bilateral low attenuating well-circumscribed renal lesions are seen, the largest in the right kidney measuring 6.2 x 6.5 cm and in the left side measuring 4.4 x 4.1 cm. No nephrolithiasis or hydronephrosis. No enhancing solid renal lesion. No free pelvic fluid or ascites. No enlarged retroperitoneal or pelvic adenopathy. Mild diffuse atherosclerotic plaque in the abdominal aorta and bilateral iliac arteries. No bowel obstruction. Normal appendix. Right inguinal hernia containing loops of small bowel with the defect measuring 2.7 cm. Prostate is enlarged measuring 7.3 x 6.3 x 7.0 cm indenting the bladder base. Anterior bladder dome diverticulum measuring 1.7 cm. No suspicious bony lesion. IMPRESSION: 1. Left lower lobe nodule, nonspecific. CT chest in 3 months recommended for evaluation of additional nodules. 2. Enlarged prostate. Clinically correlate with physical exam and PSA. 3. Bilateral renal cysts. No nephrolithiasis. 4. Circumferential urinary bladder wall thickening may be secondary to chronic outlet obstruction or cystitis. Clinically correlate. Urinalysis. Electronically signed by: Jeremias Cervantes DO (10/07/2018 3:19 PM) [facility]
[2018-10-07] MEDS ORDERED: TAMS0.4C97 PO (17:01)
--- NOTE | 2018-10-07 18:01 | NUR ---
Discharge: Teaching verbal and written. Reviewed medication, follow-up, ECHO, cystoscopy, syncope, ect. Patient and friend verbalized understanding. All belongings with patient. Patient ambulated off of unit via wheelchair accompanied by friend and nurse.
--- NOTE | 2018-10-07 20:03 | DS ---
DATE OF DISCHARGE: 10/07/2018 HOSPITAL SUMMARY: An 82-year-old white male came in with ongoing weakness and fatigue without specific cause or symptoms. Outpatient studies have been negative to this point. Laboratory study showed a very mild pancytopenia, white count of 3400, platelets around 100,000, hemoglobin 11. B12 levels are pending. Echocardiogram was all within normal limits. Urinalysis showed microhematuria with greater than 40 red blood cells with no sign of infection. Renal sonogram and CT scan of the abdomen and pelvis showed bilateral renal cysts, some bladder and prostate enlargement, but no specific lesions of the bladder or kidneys. He showed no arrhythmias on the monitor, and after he was seen by the urologist in consultation to arrange outpatient cystoscopy, he is comfortable to be followed as an outpatient. FINAL DIAGNOSES: 1. Fatigue, etiology undetermined. 2. Pancytopenia, mild idiopathic. 3. Microhematuria, etiology undetermined. OPERATIONS, PROCEDURES, COMPLICATIONS: None. CONSULTATIONS: Dr. Olivia' group. DISPOSITION: We will follow up in 1 week with a B12 level and follow his CBC. Urologist will likely proceed with a cystoscopy to evaluate the bladder and prostate in regards to the microhematuria. ZOHAIB KU MD DR: ZANDRA/vlad JOB#: [id number] / [id number]
[2018-10-07] MEDS ORDERED: DOXAZOSIN MESYLATE 4 MG TABLET. PO SCH (21:00)
== END 2018-10-07 17:50 | disposition home or self-care (01) ==
LOC: ER 16:36 → 2 SOUTH 18:30
PROVIDERS: ADMIT Family Medicine; ATTEND Family Medicine
DX: R55 Syncope and collapse (principal); R42 Dizziness and giddiness; E78.00 Pure hypercholesterolemia, unspecified; I10 Essential (primary) hypertension; N40.0 Benign prostatic hyperplasia without lower urinary tract symptoms; D61.818 Other pancytopenia; R31.29 Other microscopic hematuria; R53.83 Other fatigue; Z87.891 Personal history of nicotine dependence
CPT/HCPCS: 36415; 70450; 71045; 74178; 76770; 80053; 81001; 82607; 83605; 83735; 84484; 85025; 85610; 85730; 87086; 93005; 93306; 96360; 96361; 99284; G0378; J7030; Q9967; G0379

== ENCOUNTER → 2019-02-24 | Outpatient (CLI) | payer MEDICARE ==
[~2019-02-24] MED LIST changes: +IBUP-1027 PO; +TAMS0.4C97 PO
--- NOTE | 2019-02-24 16:23 | RAD ---
EXAM: Chest CT without intravenous contrast. HISTORY: Pulmonary nodule follow-up. TECHNIQUE: Computed tomographic images of the chest were obtained without contrast. Multiplanar reformatting was performed. *One or more of the following individualized dose reduction techniques were utilized for this examination: 1. Automated exposure control. 2. Adjustment of the mA and/or kV according to patient size. 3. Use of iterative reconstruction technique. COMPARISON: 10/07/2018. FINDINGS: There has been no change in a 4 mm left lower lobe pulmonary nodule. There is right basilar subpleural bleb formation and bilateral posterior dependent atelectasis. There is no infiltrate, pleural effusion or pneumothorax. There is mild enlargement of the cardiac silhouette. There is no lymphadenopathy. There is aortic and coronary artery atherosclerosis. There is biliary ductal dilatation, possibly due to reservoir effect status post cholecystectomy. There are multiple cystic lesions within the kidneys, partially included on the hlqfk-vz-rbty. There is colonic diverticulosis. There is a suspected proximal duodenal diverticulum. There are degenerative changes involving the spine. There are multiple healed right rib fractures. There are few incidental osseous hemangiomas. IMPRESSION: 1. 4 mm left lower lobe pulmonary nodule, stable in appearance. Follow-up can be performed in one year if there are risk factors for pulmonary malignancy, according to Fleischner Society criteria. 2. Mild emphysema with right basilar subpleural bleb formation. No infiltrate or effusion is seen. 3. Prominent heart size. 4. Colonic diverticulosis. 5. Multiple renal cysts and biliary ductal dilatation, characterized on the abdomen CT dated 10/07/2018. Electronically signed by: Christine Selby MD (02/24/2019 4:20 PM) [place] [id number]
== END | disposition home or self-care (01) ==
LOC: CT 10:32
PROVIDERS: ATTEND Internal Medicine Critical Care Medicine
DX: J43.9 Emphysema, unspecified (principal); J98.11 Atelectasis; R91.1 Solitary pulmonary nodule; K57.30 Diverticulosis of large intestine without perforation or abscess without bleeding; N28.1 Cyst of kidney, acquired; I25.10 Atherosclerotic heart disease of native coronary artery without angina pectoris; Z90.49 Acquired absence of other specified parts of digestive tract
CPT/HCPCS: 71250

== ENCOUNTER 2019-06-09 18:12 | Emergency (ER) | payer MEDICARE ==
[~2019-06-09] VITALS: Ht 175.3 cm; Wt 73.6 kg
[2019-06-09 18:30] VITALS: BP 162/89
--- NOTE | 2019-06-09 18:35 | PHYS DOC ---
Past Medical History Past Medical History: High Cholesterol, Hypertension, Other Additional Past Medical Histor: ENLARGED PROSTATE Past Surgical History: Cholecystectomy, Other Additional Past Surgical Histo: umbilical hernia repair,inguinal Smoking Status: Former Smoker Alcohol Use: Rarely Drug Use: None General Adult EDM: Chief Complaint: MECHANICAL FALL HPI: HPI: Patient is a 83 year old male who presents with tripped as he was putting grocerys away and fell to the floor on his left shoulder. Left shoulder pain at a 3/10 without moving it and a 7/10 with moving. Review of Systems: Review of Systems: Musculoskeletal: Denies back pain. Left shoulder joint pain. [] Heart Score: Risk Factors: Risk Factors: DM, Current or recent (<one month) smoker, HTN, HLP, family history of CAD, obesity. Risk Scores: Score 0 - 3: 2.5% MACE over next 6 weeks - Discharge Home Score 4 - 6: 20.3% MACE over next 6 weeks - Admit for Clinical Observation Score 7 - 10: 72.7% MACE over next 6 weeks - Early Invasive Strategies Allergies: Allergies: Allergies Coded Allergies Type Severity Reaction Last Updated Verified No Known Drug Allergies 07/02/16 No Physical Exam: PE: Constitutional: Well developed, well nourished, no acute distress, non-toxic appearance. [] HENT: Normocephalic, atraumatic, bilateral external ears normal, oropharynx moist, no oral exudates, nose normal. [] Eyes: PERRLA, EOMI, conjunctiva normal, no discharge. [] Neck: Normal range of motion, no tenderness, supple, no stridor. [] Cardiovascular:Heart rate regular rhythm, no murmur [] Lungs & Thorax: Bilateral breath sounds clear to auscultation [] Abdomen: Bowel sounds normal, soft, no tenderness, no masses, no pulsatile masses. [] Skin: Warm, dry, no erythema, no rash. [] Back: No tenderness, no CVA tenderness. [] Extremities: No tenderness, no cyanosis, no clubbing, Left shoulder ROM not intact, no edema. [] Neurologic: Alert and oriented X 3, normal motor function, normal sensory function, no focal deficits noted. [] Psychologic: Affect normal, judgement normal, mood normal. [] EKG: EKG: [] Radiology/Procedures: Radiology/Procedures: [] Impression: [facility] [address] [place] [address] IMAGING REPORT Signed PATIENT: SALTY XIE ACCOUNT: [id number] : 1935 LOCATION: ER AGE: 83 SEX: M EXAM STATUS: PRE ER ORD. PHYSICIAN: BERTRAND HALL APRN REASON: fall, pain PROCEDURE: SHOULDER 2+V LEFT CLAVICLE LEFT, SHOULDER 2+V LEFT 06/09/2019 6:26 PM INDICATION: Fall, pain COMPARISON: None available. TECHNIQUE: 3 views of the left shoulder and 2 views of the left clavicle are provided. FINDINGS/ IMPRESSION: 1. There is no acute fracture or dislocation involving the glenohumeral and acromioclavicular joints. Clavicle is intact. There is mild joint space narrowing with marginal osteophytosis at the left acromioclavicular joint compatible with mild osteoarthrosis. There may be a loose body within the left acromioclavicular joint measuring 6 mm. 2. Mild glenohumeral joint space narrowing with subcortical sclerosis compatible with mild osteoarthrosis. There may be minimal mineralization along the lateral margin of the left humeral head as may be seen with calcific tendinitis. Scapula appears intact as do adjacent ribs. Electronically signed by: Eloisa Hodges MD (06/09/2019 6:58 PM) [facility] DICTATED and SIGNED BY: ELOISA HODGES MD DATE: 06/09/191857 Course & Med Decision Making: Course & Med Decision Making Pertinent Labs and Imaging studies reviewed. (See chart for details) No swelling or deformity to the left shoulder or clavicle. Patient states he can move at the shoulder but it is to painful. I was able to check ROM manually moving the shoulder and he does have some control over the shoulder but would rather me move it myself rather than him move it. ROM is slightly less than normal due to pain and the patient resisting against me when I would reach a height that elicited pain. Skin pink warm and dry. Radial pulse strong and prese nt. No other joint pain, swelling or bruising. Can make a full tight fist. Cap refill less than 3 seconds. No swelling in the arm at all. Full ROM in the elbow and wrist and no tenderness or swelling. Denies any numbness or tingling. Denies hitting his head, headache, dizziness, chest pain, soa, visual changes, neck pain, back pain, abdominal pain, nausea or vomiting. Ambulatory with steady gait. Alert and oriented. [] Dragon Disclaimer: Dragon Disclaimer: This electronic medical record was generated, in whole or in part, using a voice recognition dictation system. Departure Departure Impression: Primary Impression: Fall Qualified Codes: W19.XXXA - Unspecified fall, initial encounter Additional Impression: Shoulder pain, left Qualified Codes: M25.512 - Pain in left shoulder Disposition: HOME, SELF-CARE Condition: STABLE Referrals: ZOHAIB KU MD (PCP) STEFFANY WOODS MD Patient Instructions: Contusion, Mlcy-sv-Xwcj, Shoulder Pain, Ticf-ag-Rlax Additional Instructions: Use ice or heat on your shoulder to help with pain. Take medication as prescribed. Do not drive or operate heavy machinery if taking medication. This medication will make you sleepy. Follow-up with your primary care or the orthopedic doctor as I referred you to. Scripts Hydrocodone/Apap 5-325 (NORCO 5-325 TABLET) 1 Each Tablet 1 TAB PO PRN Q6HRS PRN for PAIN, #10 TAB 0 Refills Prov: BERTRAND HALL APRN 06/09/19 BERTRAND HALL APRN Jun 09, 2019 18:35
--- NOTE | 2019-06-09 19:01 | RAD ---
CLAVICLE LEFT, SHOULDER 2+V LEFT 06/09/2019 6:26 PM INDICATION: Fall, pain COMPARISON: None available. TECHNIQUE: 3 views of the left shoulder and 2 views of the left clavicle are provided. FINDINGS/ IMPRESSION: 1. There is no acute fracture or dislocation involving the glenohumeral and acromioclavicular joints. Clavicle is intact. There is mild joint space narrowing with marginal osteophytosis at the left acromioclavicular joint compatible with mild osteoarthrosis. There may be a loose body within the left acromioclavicular joint measuring 6 mm. 2. Mild glenohumeral joint space narrowing with subcortical sclerosis compatible with mild osteoarthrosis. There may be minimal mineralization along the lateral margin of the left humeral head as may be seen with calcific tendinitis. Scapula appears intact as do adjacent ribs. Electronically signed by: Kayley Cui MD (06/09/2019 6:58 PM) [facility]
[2019-06-09] MEDS ORDERED: HYDR-3164 PO (19:11)
== END 2019-06-09 19:42 | disposition home or self-care (01) ==
LOC: ER 18:12
DX: M25.512 Pain in left shoulder (principal); G89.11 Acute pain due to trauma; I10 Essential (primary) hypertension; E78.00 Pure hypercholesterolemia, unspecified; Z87.891 Personal history of nicotine dependence; W18.39XA Other fall on same level, initial encounter; Y93.89 Activity, other specified; Y92.89 Other specified places as the place of occurrence of the external cause; Y99.8 Other external cause status
CPT/HCPCS: 73000; 73030; 99284

== ENCOUNTER → 2020-12-19 | Outpatient (CLI) | payer MEDICARE ==
[2020-05-25 11:00] VITALS: BP 120/48
[~2020-12-19] MED LIST changes: +APIX2.5T PO; +CYAN50009 PO; +HYDR-2765 PO; +LISI10TA16 PO; -LISI10TA2 PO; +MULT1TAB6 PO; +POLY17PO52 PO; +SENN-189 PO
== END ==
LOC: SPEC 15:53 → EDSTATUS 01-17 13:57
PROVIDERS: ATTEND Internal Medicine
DX: Z20.822 Contact with and (suspected) exposure to COVID-19 (principal)
CPT/HCPCS: U0003; U0005